=== PATIENT | female | born 1990 | race Caucasian/White ===

== ENCOUNTER → 2018-10-29 | Day surgery (SDC) | payer OTHER ==
--- NOTE | 2018-10-28 11:33 | Pre Op History & Physical ---
DATE OF SURGERY: 10/29/2018. CHIEF COMPLAINT: Recurrent tonsillitis and adenoiditis. HISTORY OF PRESENT ILLNESS: This 28-year-old female has 6 to 8 episodes of tonsillitis since April of 2018, very typical episode usually includes sore throat and trouble swallowing. The patient has elevated temperature with 104, when it got sick. The patient has been missing work. She has been treated with multiple antibiotics including Cefzil by myself with no improvement. REVIEW OF SYSTEMS: System review showed no recent cardiovascular, respiratory, or GI problem. PAST MEDICAL HISTORY: The patient has no significant medical problem. PAST SURGICAL HISTORY: The patient has previous wisdom teeth extraction and surgery on her left elbow. ALLERGIES: SHE HAS NO KNOWN ALLERGY TO MEDICATION. MEDICATIONS: She is on nortriptyline, Fycompa, and control pills. SOCIAL HISTORY: She is a nonsmoker, nondrinker. FAMILY HISTORY: Noncontributory. PHYSICAL EXAMINATION: VITAL SIGNS: On examination, the patient's vital signs were within normal limits. She was seen with her boyfriend. HEENT: Ear exam showed normal tympanic membrane bilaterally. Nasal exam showed hypertrophy of inferior turbinates. Oropharynx and oral cavity show 2+ tonsils bilaterally with no exudate or debris at the time of exam. NECK: Showed no lymph node or thyroid palpable. CHEST: Showed good air entry bilaterally. CARDIOVASCULAR: Showed S1, S2. No murmur noted. HISTORY OF PRESENT ILLNESS: Ms. Enriquez has recurrent tonsillitis and adenoiditis, which has been resistant to conservative therapy. Suggested treatment of tonsillectomy, possible adenoidectomy, and other necessary procedure. Complication of procedure includes, but not limited to bleeding, infection, hyponasal speech, nasal regurgitation of food, airway distress, recurrence of the sore throat. Alternatives will be continue observation, continue antibiotic therapy, topical nasal steroid therapy, systemic steroid therapy, decongestant. The patient has elected to undergo surgical procedure. Florencio Maya MD DKH/MODL /[id number] cc: Roberto Smith MD
[~2018-10-29] MED LIST: ACETAMINOPHEN 1000 MG/100 ML IV ONE; BUPIVACAINE 0.5%/EPI 30 ML SDV INJ ONE; CEFPROZIL250 MG PO; DEXAMETHASONE SOD PHOS INJ 4 MG/ML VIAL ONE; ENSKYCE PO; FENTANYL CITRATE/PF 100MCG/2 ML INJ ONE; FOLIC ACID1 MG PO; FYCOMPA PO; LEVETIRACETAM500 MG PO; LIDOCAINE HCL 2% JELLY 5 ML TUBE ONE; LIDOCAINE HCL 2% LOCAL INJ 5 ML SDV VIAL INJ ONE; MIDAZOLAM HCL 2 MG/2 ML VIAL ONE; NORTRIPTYLINE H10 MG PO; ONDANSETRON HCL INJ 2MG/ML 2ML 2 MG/ML VIAL ONE; PROPOFOL IV EMULSION 10 MG/ML 20 ML VIAL ONE; ROCURONIUM BROMIDE 10 MG/ML 5ML VIAL ONE; SEVOFLURANE INHAL SOLN 250 ML PEN BTL ONE
--- OUTSIDE RECORDS SUMMARY | 2018-10-29 07:38 | XMS REPORT ---
Author Author [facility] Address Unknown Phone Unavailable Care Team Providers Care Cashier Name Role Phone Unavailable Unavailable Problems This patient has no known problems. Allergies, Adverse Reactions, Alerts This patient has no known allergies or adverse reactions. Medications This patient has no known medications.
--- OUTSIDE RECORDS SUMMARY | 2018-10-29 07:38 | XMS REPORT | Clinical Summary ---
Author Author [facility] Address Unknown Phone Unavailable Care Team Providers Care Ironer Or Presser Name Role Phone Asked, No Pcp PCP Unavailable Allergies No Known Allergies Medications End Date Status Medication Sig Dispensed Refills Start Date Active eletriptan hydrobromide Take by 0 (RELPAX ORAL) mouth. 01/23/2019 Active folic acid (FOLVITE) 1 MG Take 2 180 tablet 3 tablet tablets (2 mg 8 total) by mouth daily. Active levETIRAcetam XR (KEPPRA TAKE 6 180 tablet 11 XR) 500 mg 24 hr tablet TABLETS BY 9 MOUTH NIGHTLY Active ENSKYCE 0.15-0.03 mg per Take 1 tablet 12 tablet by mouth 9 daily. Active nortriptyline (PAMELOR) 10 mg 5 10 MG capsule nightly. 9 02/03/2019 Active perampanel (FYCOMPA) 4 mg Take 1 tablet 90 tablet 1 tablet tablet (4 mg total) 9 by mouth daily for 180 days. 08/07/2018 Discontinued topiramate (TOPAMAX) 50 TAKE 1 TABLET 60 tablet 3 MG tablet BY MOUTH 8 TWICE A DAY 01/23/2018 Discontinued levETIRAcetam XR (KEPPRA TAKE 6 180 tablet 3 XR) 500 mg 24 hr tablet TABLETS BY 8 MOUTH NIGHTLY 08/07/2018 Discontinued diazePAM (DIASTAT insert 15mg 0 ACUDIAL) 12.5-15-17.5-20 rectally for 3 mg rectal kit prolonged seizures 05/29/2018 Discontinued levETIRAcetam XR (KEPPRA TAKE 6 180 tablet 3 XR) 500 mg 24 hr tablet TABLETS BY 8 MOUTH NIGHTLY 08/07/2018 Discontinued perampanel (FYCOMPA) 2 mg Take 1 tablet 173 tablet 1 tablet tablet (2 mg total) 9 by mouth nightly for 14 days, THEN 2 tablets (4 mg total) nightly for 166 days. 08/07/2018 diazePAM (DIASTAT Insert 20 mg 20 mg 0 ACUDIAL) 12.5-15-17.5-20 into the 9 mg rectal kit rectum once for 1 dose. 20 mg [place] for prolonged seizure Active Problems Not on file Encounters Care Team Description Date Type Specialty Bharat Monteiro MD Seizures, generalized convulsive (HCC) (Primary Dx) 08/07/2018 Office Visit Neurology Verna Miller RN 07/18/2018 Refill Neurology Verna Miller RN 07/18/2018 Refill Neurology Verna Miller RN 07/18/2018 Orders Only Neurology Bharat Monteiro MD 05/29/2018 Refill Neurology Bharat Monteiro MD Seizures, generalized convulsive (HCC) (Primary Dx) 01/23/2018 Office Visit Neurology after 10/28/2017 Social History Date Tobacco Use Types Packs/Day Years Used Never Smoker Smokeless Tobacco: Never Used Alcohol Use Drinks/Week oz/Week Comments No Sex Assigned at Date Recorded Not on file Industry Job Start Date Occupation Not on file Not on file Not on file Travel End Travel History Travel Start No recent travel history available. Last Filed Vital Signs Time Taken Vital Sign Reading 08/07/2018 1:54 PM CDT Blood Pressure 121/85 08/07/2018 1:54 PM CDT Pulse 73 - Temperature - - Respiratory Rate - - Oxygen Saturation - - Inhaled Oxygen - Concentration 08/07/2018 1:54 PM CDT Weight 93.8 kg (206 lb 11.2 oz) 08/07/2018 1:54 PM CDT Height 167.6 cm (5' 6") 08/07/2018 1:54 PM CDT Body Mass Index 33.36 Plan of Treatment Care Team Description Date Type Specialty Bharat Monteiro MD [id number] [place] [address] 01/29/2019 Office Visit Neurology Health Maintenance Due Date Last Done Comments INFLUENZA VACCINE 11/14/2018 Results Not on fileafter 10/28/2017 Insurance Type Payer Benefit Subscriber ID Effective Phone Address Plan / Dates Group PPO AETNA AETNA PPO xxxxxxxxxx 2001- OPEN Present CHOICE Advance Directives Patient has advance care planning documents on file. For more information, arie srinivasan contact: Reece Cheney [address] [place] [address]
[2018-10-29 10:45] VITALS: BP 132/81
--- NOTE | 2018-10-29 12:50 | Operative Report ---
DATE OF PROCEDURE: 10/29/2018 SURGEON: Florencio Maya MD CHIEF COMPLAINT: Recurrent tonsillitis. POSTOPERATIVE DIAGNOSIS: Recurrent tonsillitis. OPERATIVE PROCEDURE: Tonsillectomy. ANESTHESIA: Anesthesiology group. INDICATIONS: This 28-year-old female has 7 to 8 episodes of tonsillitis since April of 2018. The patient has been treated with multiple antibiotics with no improvement. The patient has been missing work. Typical episode usually includes sore throat and trouble breathing. On examination, the patient was noted to have 2+ tonsils bilaterally. It was decided that tonsillectomy and other necessary procedure will be beneficial for her. DESCRIPTION OF PROCEDURE: The patient was taken to the operating room, put under general anesthesia, endotracheally intubated. The patient was put in Mariya position and McIvor mouth gag was inserted. The adenoid tissue was examined. It was not noted to be hypertrophy or inflamed. The tonsil fossas were injected with 0.5% Marcaine with 1:200,000 epinephrine. The right tonsil was retracted medially. A plane was created between the tonsil and tonsillar bed. Dissection was carried on the inferior pole. The tonsil was snared off. Similar procedure was carried out on the contralateral side. Hemostasis in tonsillar fossas was achieved using the suction cautery. Nasopharynx, oropharynx, and oral cavity were irrigated with copious amount of normal saline. The stomach was suctioned out at the end of procedure. The patient tolerated the above procedure well with estimated blood loss about 20 mL. The patient was given 20 mg of Decadron intraoperatively. The patient was able to be transferred to recovery room in stable condition. lForencio Maya MD DKH/MODL /[id number]
== END | disposition home or self-care (01) ==
LOC: OR 07:35
PROVIDERS: ATTEND Otolaryngology Otolaryngology/Facial Plastic Surgery
DX: J35.01 Chronic tonsillitis (principal); J34.3 Hypertrophy of nasal turbinates; E66.9 Obesity, unspecified
CPT/HCPCS: 42826; 81025; 88304; J0131; J1100; J2001 ×2; J2250; J2405; J2704; J3010